=== PATIENT | female | born 1980 | race Caucasian/White ===

== ENCOUNTER 2017-08-11 22:24 | Emergency (ER) | payer MEDICAID ==
[~2017-08-11] VITALS: Ht 175.3 cm; Wt 73.5 kg
[2017-08-12] MEDS ORDERED: NAPR-56 PO (00:38)
[2017-08-12] MEDS ORDERED: PSEU-259 PO (00:38)
[2017-08-12 01:26] VITALS: BP 117/79
== END 2017-08-12 01:33 | disposition home or self-care (01) ==
LOC: ER 22:24
DX: J32.0 Chronic maxillary sinusitis (principal); Z79.899 Other long term (current) drug therapy
CPT/HCPCS: 99283